=== PATIENT | male | born 1970 | race African-American/Black ===

== ENCOUNTER 2018-01-04 20:50 | Emergency (ER) | payer MEDICAID, OTHER ==
[~2018-01-04 20:50] MED LIST: ANTI50TA PO; Z.0.NO CURRENT MEDS
[2018-01-04 21:03] VITALS: BP 131/69; PULSE 68; RESP 14; TEMP 98.6; O2SAT 100
[2018-01-04] MEDS ORDERED: PROPARACAINE HCL 0.5% OPHT SOLN 15 ML BTL EACH EYE ONE (22:00)
--- NOTE | 2018-01-04 22:03 | PD ---
HPI Chief Complaint: Eye Problems/Injury Time Seen by Provider: 21:47 Travel History International Travel<30 days: No Contact w/Intl Traveler<30days: No Traveled to known affect area: No History of Present Illness HPI 47yo M with no PMH presents to the ED with c/o right eye irritation and pain after stucco fell on his right eye. Said it is a mixture of sand and grout. Has foreign body sensation, feels something is in his eyelid. Denies any other injury. Does feel like it is a little more blurred. Denies any fever, chest pain, sob, n/v, abdominal pain, focal weakness or numbness. PFSH Past Medical History Medical History: Denies Significant Hx Diminished Hearing: No Tetanus Vaccination: Unknown Influenza Vaccination: No Past Surgical History Surgical History: No Previous Surgery Social History Alcohol Use: No Tobacco Use: No Substance Use: No Allergies-Medications (Allergen,Severity, Reaction): Coded Allergies: No Known Allergies (Verified Adverse Reaction, Unknown, 01/04/18) Reported Meds & Prescriptions Reported Meds & Active Scripts Active No Active Prescriptions or Reported Medications Review of Systems Except as stated in HPI: all other systems reviewed are Neg Physical Exam Narrative GEN: 47yo M in mild distress. SKIN: Warm and dry. HEAD: Normocephalic, atraumatic. NECK: No midline cervical spine ttp. EYE: Pupils 3mm and reactive bilaterally. EOMI. Right eye: Injected conjunctiva. No foreign by seen in upper or lower eyelids. Dailey lamp: + Fluorescein uptake right corneal on top of right iris 6 o'clock to 12 o'clock. CV: S1, S2. Lungs: CTA B/L, equal breath sounds. Abd: Soft, NT/ND. Ext: No edema. Neuro: CNII-XII grossly intact. Muscle strength 5/5 in all extremities. Sensation intact. Data Data Last Documented VS Vital Signs Date Time Temp Pulse Resp B/P (MAP) Pulse Ox O2 Delivery O2 Flow Rate FiO2 01/04/18 21:03 98.6 68 14 131/69 (89) 100 Orders Orders Proparacaine 0.5% Opth Soln (Alcaine 0.5 (01/04/18 22:00) Ed Poc Ultrasound (01/04/18 ) [facility] Medical Decision Making Medical Screen Exam Complete: Yes Emergency Medical Condition: Yes Differential Diagnosis Corneal abrasion vs. foreign body in eye vs. corneal ulcer Narrative Course 47yo M with right eye pain, foreign body sensation after stucco fell on it while he was fixing the ceiling. Pt has injected conjunctiva and visual acuity of 20/40 in right eye. Pt does not wear glasses or contacts. Proparacaine was use to anesthesize eye prior to dailey lamp examination with flourescein. Pain resolved after proparacaine and there was a large flourescein uptake. Bedside US right eye normal. Pt understands that he needs to follow up with ophthalmology tomorrow if possible. Return precautions given. Procedures Procedure Narrative Ocular US: Linear probe was use to examine right eye in transverse and sagittal views. No retinal detachment, lens dislocation, or vitreous hemorrhage. Diagnosis Primary Impression: Corneal abrasion Qualified Codes: S05.01XA - Injury of conjunctiva and corneal abrasion without foreign body, right eye, initial encounter Referrals: Jennifer Mora MD call for appointment Large corneal abrasion Patient Instructions: General Instructions Departure Forms: Tests/Procedures Additional Instructions: Please follow up with Dr. Mora in 1-2 days. Return to the ED if symptoms worsen. Med/Other Pt SpecificInfo: Prescription(s) given Scripts Acetaminophen (Tylenol) 325 Mg Tab 650 MG PO Q6H Y for PAIN SCALE 1 TO 4, #20 TAB 0 Refills Prov: Maryann Hernandez DO 01/04/18 Erythromycin Opth Oint (Erythromycin Opth Oint) 5 Mg/Gm Oint 1 APPLIC RIGHT EYE BID for Infection for 5 Days, #1 TUBE 0 Refills Prov: Maryann Hernandez DO 01/04/18 Maryann Hernandez DO Jan 04, 2018 22:03
[2018-01-04] MEDS ORDERED: ERYTOIN10 RIGHT EYE (23:16)
[2018-01-04] MEDS ORDERED: TYLE325T PO (23:16)
== END 2018-01-04 23:33 | disposition home or self-care (01) ==
LOC: NEPD 20:50
DX: S05.01XA Injury of conjunctiva and corneal abrasion without foreign body, right eye, initial encounter (principal); W22.8XXA Striking against or struck by other objects, initial encounter
CPT/HCPCS: 99283